=== PATIENT | male | born 1975 | race African-American/Black ===

== ENCOUNTER 2017-03-13 10:16 | Emergency (ER) | payer MEDICAID ==
[~2017-03-13] VITALS: Ht 188 cm; Wt 100.0 kg
[2017-03-13] MEDS ORDERED: ONDANSETRON HCL 4MG/2ML VIAL IV STA (10:54)
[2017-03-13] MEDS ORDERED: KETOROLAC 30MG/ML VIAL IV STA (10:54)
[2017-03-13] MEDS ORDERED: SODIUM CHLORIDE 0.9% 1,000 ML IV ONE (10:54)
[2017-03-13 11:25] LABS: BASOPHILS % 0.3 % (0.0-2.0); EOSINOPHILS % 0.2 % (0.0-5.0); HEMATOCRIT. 51.5 % (42.0-52.0); INR 1.1; LYMPHOCYTES % 14.1 % (20.0-50.0); MEAN CORPUSCULAR HEMOGLOBIN 29.2 pg (28.0-32.0); MEAN CORPUSCULAR VOLUME 88.6 fL (80.0-94.0); MEAN PLATELET VOLUME 8.5 fl (7.4-10.4); MONOCYTES % 4.9 % (2.0-8.0); NEUTROPHILS % 80.5 % (40.0-76.0); PLATELET 219 x1000/uL (130-400); RED BLOOD CELL COUNT 5.81 mill/uL (4.7-6.1); RED CELL DISTRIBUTION WIDTH 13.6 % (11.6-14.6)
[2017-03-13 11:41] LABS: CHLORIDE 100 mEq/L (98-107)
[2017-03-13 11:52] LABS: CARBON DIOXIDE 26 mEq/L (21-32)
[2017-03-13 12:31] VITALS: BP 151/95
== END 2017-03-13 14:28 | disposition home or self-care (01) ==
LOC: ER 10:28
DX: R10.12 Left upper quadrant pain (principal); F17.210 Nicotine dependence, cigarettes, uncomplicated; F12.10 Cannabis abuse, uncomplicated
CPT/HCPCS: 36415; 74176; 80053; 83690; 85025; 85610; 96361; 96374; 96375; 99285; J1885; J2405; J7030

== ENCOUNTER 2017-03-14 18:53 | Emergency (ER) | payer MEDICAID | END 2017-03-14 19:00 | disposition left against medical advice (07) | LOC: ER 18:53 | DX: R10.9 Unspecified abdominal pain (principal); Z53.21 Procedure and treatment not carried out due to patient leaving prior to being seen by health care provider ==

== ENCOUNTER 2017-03-24 09:28 | Emergency (ER) | payer MEDICAID ==
[~2017-03-24] VITALS: Ht 177.8 cm; Wt 90.0 kg
[2017-03-24] MEDS ORDERED: DICYCLOMINE 10 MG/5 ML ORAL SYR PO STA (10:32)
[2017-03-24] MEDS ORDERED: SODIUM CHLORIDE 0.9% 1,000 ML IV ONE (10:32)
[2017-03-24] MEDS ORDERED: FAMOTIDINE 20MG/2ML VIAL IV STA (10:32)
[2017-03-24] MEDS ORDERED: ONDANSETRON HCL 4MG/2ML VIAL IV STA (10:32)
[2017-03-24] MEDS ORDERED: MAGNESIUM/ALUMINUM HYDROXIDE/SIMETHICONE 30ML UDC PO STA (10:32)
[2017-03-24] MEDS ORDERED: VISCOUS LIDOCAINE 2% 15 ML UDC PO STA (10:32)
[2017-03-24] MEDS ORDERED: KETOROLAC 30MG/ML VIAL IV STA (10:32)
[2017-03-24 10:37] LABS: BASOPHILS % 0.2 % (0.0-2.0); EOSINOPHILS % 0.1 % (0.0-5.0); HEMATOCRIT. 31.6 % (42.0-52.0); HEMOGLOBIN. 10.4 g/dL (14.0-18.0); LYMPHOCYTES % 9.4 % (20.0-50.0); MEAN CORPUSCULAR HEMOGLOBIN 29.1 pg (28.0-32.0); MEAN CORPUSCULAR VOLUME 87.9 fL (80.0-94.0); MEAN PLATELET VOLUME 7.7 fl (7.4-10.4); MONOCYTES % 3.9 % (2.0-8.0); NEUTROPHILS % 86.4 % (40.0-76.0); PLATELET 426 x1000/uL (130-400); RED BLOOD CELL COUNT 3.59 mill/uL (4.7-6.1); RED CELL DISTRIBUTION WIDTH 14.5 % (11.6-14.6)
[2017-03-24 10:39] LABS: PROTHROMBIN TIME 10.3 sec (9.4-11.6)
[2017-03-24 10:48] LABS: CARBON DIOXIDE 26 mEq/L (21-32); CHLORIDE 101 mEq/L (98-107)
[2017-03-24 11:05] LABS: CLARITY URINE TURBID (CLEAR); COLOR URINE YELLOW (YELLOW); KETONES URINE 3+ (NEGATIVE); LEUKOCYTE ESTERASE URINE NEGATIVE (NEGATIVE); NITRITE URINE NEGATIVE (NEGATIVE); OCCULT BLOOD URINE NEGATIVE (NEGATIVE); PROTEIN URINE NEGATIVE (NEGATIVE)
[2017-03-24 13:06] VITALS: BP 112/70
== END 2017-03-24 13:07 | disposition home or self-care (01) ==
LOC: ER 09:28
DX: R10.12 Left upper quadrant pain (principal); R11.2 Nausea with vomiting, unspecified; F17.200 Nicotine dependence, unspecified, uncomplicated; F12.10 Cannabis abuse, uncomplicated
CPT/HCPCS: 36415; 80053; 81001; 83690; 85025; 85610; 96361; 96374; 96375; 99284; J1885; J2405; J3490; Z7610; J7030

== ENCOUNTER 2017-03-24 20:13 | Emergency (ER) | payer MEDICAID ==
[~2017-03-24] VITALS: Ht 188 cm; Wt 100.0 kg
[2017-03-24 22:26] LABS: CLARITY URINE CLEAR (CLEAR); COLOR URINE YELLOW (YELLOW); KETONES URINE TRACE (NEGATIVE); LEUKOCYTE ESTERASE URINE NEGATIVE (NEGATIVE); NITRITE URINE NEGATIVE (NEGATIVE); OCCULT BLOOD URINE NEGATIVE (NEGATIVE); PH URINE 5.5 (4.5-8.0); PROTEIN URINE NEGATIVE (NEGATIVE); SPECIFIC GRAVITY URINE 1.017 (1.005-1.030); UROBILINOGEN URINE 0.2 E.U./dL (0.2-1.0)
[2017-03-25] MEDS ORDERED: SODIUM CHLORIDE 0.9% 1,000 ML IV ONE (00:24)
[2017-03-25] MEDS ORDERED: MORPHINE SULFATE 2 MG/ML CPJ (NOT FOR IM USE) IV ONE (00:30)
[2017-03-25] MEDS ORDERED: ONDANSETRON HCL 4MG/2ML VIAL IV ONE (00:30)
[2017-03-25 00:54] LABS: BASOPHILS % 0.5 % (0.0-2.0); EOSINOPHILS % 0.5 % (0.0-5.0); HEMATOCRIT. 29.9 % (42.0-52.0); HEMOGLOBIN. 10.1 g/dL (14.0-18.0); LYMPHOCYTES % 17.8 % (20.0-50.0); MEAN CORPUSCULAR HEMOGLOBIN 29.8 pg (28.0-32.0); MEAN CORPUSCULAR VOLUME 88.4 fL (80.0-94.0); MEAN PLATELET VOLUME 7.3 fl (7.4-10.4); NEUTROPHILS % 73.2 % (40.0-76.0); PLATELET 365 x1000/uL (130-400); RED BLOOD CELL COUNT 3.38 mill/uL (4.7-6.1); RED CELL DISTRIBUTION WIDTH 14.4 % (11.6-14.6)
[2017-03-25 01:05] LABS: CARBON DIOXIDE 28 mEq/L (21-32); CHLORIDE 103 mEq/L (98-107)
[2017-03-25] MEDS ORDERED: MAGNESIUM/ALUMINUM HYDROXIDE/SIMETHICONE 30ML UDC PO STA (03:30)
[2017-03-25] MEDS ORDERED: DICYCLOMINE 10 MG/5 ML ORAL SYR PO STA (03:30)
[2017-03-25] MEDS ORDERED: KETOROLAC 30MG/ML VIAL IV NR (05:15)
[2017-03-25] MEDS ORDERED: ONDANSETRON HCL 4MG/2ML VIAL IV NR (05:15)
[2017-03-25] MEDS ORDERED: TRAMADOL 50MG TABLET PO ONE (07:30)
[2017-03-25 07:58] VITALS: BP 117/90
== END 2017-03-25 08:00 | disposition home or self-care (01) ==
LOC: ER 20:49
DX: R10.12 Left upper quadrant pain (principal); R11.2 Nausea with vomiting, unspecified; D64.9 Anemia, unspecified; Q53.10 Unspecified undescended testicle, unilateral; F12.10 Cannabis abuse, uncomplicated; F17.200 Nicotine dependence, unspecified, uncomplicated
CPT/HCPCS: 36415; 76705; 80053; 81003; 85025; 96361; 96374; 96375; 96376; 99285; J1885; J2270; J2405; J7030; Z7610

== ENCOUNTER 2017-06-07 02:14 | Emergency (ER) | payer MEDICAID ==
[~2017-06-07] VITALS: Ht 188 cm; Wt 91.0 kg
[2017-06-07] MEDS: MORPHINE SULFATE 4 MG/ML CPJ (NOT FOR IM USE) IV STA ×2 (03:27→06:29)
[2017-06-07] MEDS: ONDANSETRON HCL 4MG/2ML VIAL IV STA ×2 (03:27→06:29)
[2017-06-07] MEDS: SODIUM CHLORIDE 0.9% 1,000 ML IV ONE (03:27)
[2017-06-07 03:37] LABS: BASOPHILS % 0.2 % (0.0-2.0); EOSINOPHILS % 0.4 % (0.0-5.0); HEMATOCRIT. 25.9 % (42.0-52.0); HEMOGLOBIN. 8.3 g/dL (14.0-18.0); LYMPHOCYTES % 10.2 % (20.0-50.0); MEAN CORPUSCULAR HEMOGLOBIN 24.8 pg (28.0-32.0); MEAN PLATELET VOLUME 8.5 fl (7.4-10.4); MONOCYTES % 4.4 % (2.0-8.0); NEUTROPHILS % 84.8 % (40.0-76.0); PLATELET 274 x1000/uL (130-400); RED BLOOD CELL COUNT 3.33 mill/uL (4.7-6.1); RED CELL DISTRIBUTION WIDTH 18.3 % (11.6-14.6)
[2017-06-07 03:39] LABS: CHLORIDE 106 mEq/L (98-107)
[2017-06-07 03:41] LABS: PARTIAL THROMBOPLASTIN TIME 24.7 sec (23.4-31.0); PROTHROMBIN TIME 10.4 sec (9.4-11.6)
[2017-06-07] MEDS ORDERED: DIATR MEGLU/DIATRIZOATE SOLN 120ML ONE (06:21)
[2017-06-07 06:31] LABS: CLARITY URINE CLEAR (CLEAR); COLOR URINE YELLOW (YELLOW); KETONES URINE NEGATIVE (NEGATIVE); LEUKOCYTE ESTERASE URINE NEGATIVE (NEGATIVE); NITRITE URINE NEGATIVE (NEGATIVE); OCCULT BLOOD URINE NEGATIVE (NEGATIVE); PH URINE 6.5 (4.5-8.0); PROTEIN URINE NEGATIVE (NEGATIVE); SPECIFIC GRAVITY URINE 1.022 (1.005-1.030); UROBILINOGEN URINE 0.2 E.U./dL (0.2-1.0)
[2017-06-07] MEDS: ONDANSETRON 4MG ODT PO ONE (11:27)
[2017-06-07 11:31] VITALS: BP 129/71
[2017-06-07] MEDS ORDERED: ONDANSETRON HCL 4MG TABLET ONE (11:33)
== END 2017-06-07 11:59 | disposition home or self-care (01) ==
LOC: ER 02:14
DX: R10.32 Left lower quadrant pain (principal); R10.12 Left upper quadrant pain; R11.10 Vomiting, unspecified; K92.1 Melena
CPT/HCPCS: 36415; 71045; 74176; 76705; 80053; 81003; 83690; 85025; 85610; 85730; 86850; 86900; 86901; 93005; 96361; 96374; 96375; 96376; 99285; J2270; J2405; J7030; Q0162; Q9963

== ENCOUNTER 2017-07-25 03:43 | Emergency (ER) | payer MEDICAID ==
[~2017-07-25] VITALS: Ht 185.4 cm; Wt 90.0 kg
[2017-07-25] MEDS ORDERED: FAMOTIDINE 20MG/2ML VIAL IV STA (05:58)
[2017-07-25] MEDS ORDERED: SODIUM CHLORIDE 0.9% 1,000 ML IV ONE (05:58)
[2017-07-25] MEDS ORDERED: MORPHINE SULFATE 4 MG/ML CPJ (NOT FOR IM USE) IV STA (05:58)
[2017-07-25] MEDS ORDERED: ONDANSETRON HCL 4MG/2ML VIAL IV STA (05:58)
[2017-07-25 06:16] LABS: BASOPHILS % 0.5 % (0.0-2.0); EOSINOPHILS % 0.8 % (0.0-5.0); HEMATOCRIT. 36.1 % (42.0-52.0); HEMOGLOBIN. 11.9 g/dL (14.0-18.0); LYMPHOCYTES % 13.1 % (20.0-50.0); MEAN CORPUSCULAR HEMOGLOBIN 24.4 pg (28.0-32.0); MEAN CORPUSCULAR VOLUME 74.2 fL (80.0-94.0); MEAN PLATELET VOLUME 7.7 fl (7.4-10.4); MONOCYTES % 4.4 % (2.0-8.0); NEUTROPHILS % 81.2 % (40.0-76.0); PLATELET 422 x1000/uL (130-400); RED BLOOD CELL COUNT 4.87 mill/uL (4.7-6.1); RED CELL DISTRIBUTION WIDTH 21.8 % (11.6-14.6)
[2017-07-25 06:20] LABS: CHLORIDE 103 mEq/L (98-107)
[2017-07-25 06:21] LABS: PARTIAL THROMBOPLASTIN TIME 30.1 sec (23.4-31.0)
[2017-07-25] MEDS ORDERED: METRONIDAZOLE 500MG TABLET PO ONE (07:15)
[2017-07-25] MEDS ORDERED: LEVOFLOXACIN 500MG TABLET PO ONE (07:15)
[2017-07-25 08:19] VITALS: BP 150/92
[2017-07-25 08:24] LABS: CLARITY URINE CLEAR (CLEAR); COLOR URINE YELLOW (YELLOW); KETONES URINE NEGATIVE (NEGATIVE); LEUKOCYTE ESTERASE URINE NEGATIVE (NEGATIVE); NITRITE URINE NEGATIVE (NEGATIVE); OCCULT BLOOD URINE NEGATIVE (NEGATIVE); PH URINE 7.5 (4.5-8.0); PROTEIN URINE NEGATIVE (NEGATIVE); SPECIFIC GRAVITY URINE 1.014 (1.005-1.030); UROBILINOGEN URINE 0.2 E.U./dL (0.2-1.0)
[2017-07-25 08:49] LABS: *AMPHETAMINES SCREEN URINE PRESUMTIVE POSITIVE (NEGATIVE); *BARBITURATES SCREEN URINE NEGATIVE (NEGATIVE); *BENZODIAZEPINES SCREEN URINE NEGATIVE (NEGATIVE); CANNABINOID URINE SCREEN NEGATIVE (NEGATIVE); PHENCYCLIDINE URINE SCREEN NEGATIVE (NEGATIVE)
[2017-07-25 08:50] LABS: METHADONE URINE SCREEN NEGATIVE (NEGATIVE); OPIATES URINE SCREEN PRESUMTIVE POSITIVE (NEGATIVE)
[2017-07-25 08:59] LABS: *COCAINE SCREEN URINE NEGATIVE (NEGATIVE)
== END 2017-07-25 09:21 | disposition home or self-care (01) ==
LOC: ER 04:01
DX: R10.12 Left upper quadrant pain (principal); R11.2 Nausea with vomiting, unspecified; K29.70 Gastritis, unspecified, without bleeding; K52.9 Noninfective gastroenteritis and colitis, unspecified; K56.600 Partial intestinal obstruction, unspecified as to cause; R03.0 Elevated blood-pressure reading, without diagnosis of hypertension; F17.210 Nicotine dependence, cigarettes, uncomplicated
CPT/HCPCS: 36415; 71045; 74176; 80053; 80305; 81003; 83690; 84484; 85025; 85610; 85730; 93005; 96361; 96374; 96375; 99285; J2270; J2405; J3490; J7030; Z7610

== ENCOUNTER 2018-05-22 00:14 | Emergency (ER) | payer MEDICAID ==
[~2018-05-22] VITALS: Ht 188 cm; Wt 95.0 kg
[2018-05-22] MEDS ORDERED: ONDANSETRON HCL 4MG/2ML INJ IV STA (06:43)
[2018-05-22] MEDS ORDERED: SODIUM CHLORIDE 0.9% 1,000 ML IV ONE (06:43)
[2018-05-22] MEDS ORDERED: MORPHINE SULFATE 4 MG/ML CPJ (NOT FOR IM USE) IV STA (06:43)
[2018-05-22] MEDS ORDERED: PANTOPRAZOLE SODIUM 40 MG/VIAL IV ONE (06:45)
[2018-05-22] MEDS ORDERED: FAMOTIDINE 20MG/2ML VIAL IV ONE (06:45)
[2018-05-22] MEDS ORDERED: DIPHENHYDRAMINE 50MG/ML VIAL IV ONE (07:30)
[2018-05-22 08:07] LABS: BASOPHILS % 0.4 % (0.0-2.0); HEMOGLOBIN. 14.2 g/dL (14.0-18.0); LYMPHOCYTES % 16.1 % (20.0-50.0); MEAN PLATELET VOLUME 8.3 fl (7.4-10.4); MONOCYTES % 5.8 % (2.0-8.0); NEUTROPHILS % 76.7 % (40.0-76.0); PLATELET 220 x1000/uL (130-400); RED BLOOD CELL COUNT 4.72 mill/uL (4.7-6.1); RED CELL DISTRIBUTION WIDTH 14.3 % (11.6-14.6)
[2018-05-22 08:15] LABS: CHLORIDE 105 mEq/L (98-107)
[2018-05-22] MEDS ORDERED: IOHEXOL-300 100 ML BOTTLE ONE (09:18)
[2018-05-22] MEDS ORDERED: POLYETHYLENE GLYCOL 3350 (17GM) 1 DOSE PACK PO ONE (09:30)
[2018-05-22 12:16] LABS: CLARITY URINE CLEAR (CLEAR); COLOR URINE YELLOW (YELLOW); KETONES URINE NEGATIVE (NEGATIVE); LEUKOCYTE ESTERASE URINE NEGATIVE (NEGATIVE); NITRITE URINE NEGATIVE (NEGATIVE); OCCULT BLOOD URINE NEGATIVE (NEGATIVE); PH URINE 6.5 (4.5-8.0); PROTEIN URINE NEGATIVE (NEGATIVE); SPECIFIC GRAVITY URINE 1.013 (1.005-1.030); UROBILINOGEN URINE 0.2 E.U./dL (0.2-1.0)
[2018-05-22 13:52] VITALS: BP 157/86
== END 2018-05-22 13:56 | disposition home or self-care (01) ==
LOC: ER 00:14
DX: R10.12 Left upper quadrant pain (principal); R11.2 Nausea with vomiting, unspecified; K59.00 Constipation, unspecified; F17.200 Nicotine dependence, unspecified, uncomplicated; Z87.11 Personal history of peptic ulcer disease
CPT/HCPCS: 36415; 74177; 80053; 81003; 83690; 85025; 85610; 96361; 96374; 96375; 96376; 99284; C9113; J2270; J2405; J3490; J7030; Q9967; Z7610

== ENCOUNTER 2018-05-29 08:32 | Emergency (ER) | payer MEDICAID ==
[~2018-05-29] VITALS: Ht 188 cm; Wt 95.0 kg
[2018-05-29] MEDS ORDERED: ONDANSETRON HCL 4MG/2ML INJ IV STA (10:28)
[2018-05-29] MEDS ORDERED: KETOROLAC 30MG/ML VIAL IV STA (10:28)
[2018-05-29] MEDS ORDERED: FAMOTIDINE 20MG/2ML VIAL IV STA (10:28)
[2018-05-29 11:50] LABS: BASOPHILS % 0.2 % (0.0-2.0); EOSINOPHILS % 0.3 % (0.0-5.0); HEMATOCRIT. 44.2 % (42.0-52.0); HEMOGLOBIN. 14.9 g/dL (14.0-18.0); LYMPHOCYTES % 13.2 % (20.0-50.0); MEAN CORPUSCULAR HEMOGLOBIN 30.1 pg (28.0-32.0); MEAN CORPUSCULAR VOLUME 89.6 fL (80.0-94.0); MEAN PLATELET VOLUME 8.2 fl (7.4-10.4); MONOCYTES % 4.8 % (2.0-8.0); NEUTROPHILS % 81.5 % (40.0-76.0); PLATELET 278 x1000/uL (130-400); RED BLOOD CELL COUNT 4.93 mill/uL (4.7-6.1); RED CELL DISTRIBUTION WIDTH 13.8 % (11.6-14.6)
[2018-05-29 11:51] LABS: CHLORIDE 99 mEq/L (98-107)
[2018-05-29] MEDS ORDERED: DICYCLOMINE HCL 10MG/ML 2ML AMP IM ONE (12:30)
[2018-05-29 14:33] LABS: CLARITY URINE CLEAR (CLEAR); COLOR URINE YELLOW (YELLOW); KETONES URINE NEGATIVE (NEGATIVE); LEUKOCYTE ESTERASE URINE NEGATIVE (NEGATIVE); NITRITE URINE NEGATIVE (NEGATIVE); OCCULT BLOOD URINE NEGATIVE (NEGATIVE); PROTEIN URINE NEGATIVE (NEGATIVE); SPECIFIC GRAVITY URINE 1.012 (1.005-1.030); UROBILINOGEN URINE 0.2 E.U./dL (0.2-1.0)
[2018-05-29 14:48] LABS: *AMPHETAMINES SCREEN URINE PRESUMTIVE POSITIVE (NEGATIVE); *BARBITURATES SCREEN URINE NEGATIVE (NEGATIVE); *COCAINE SCREEN URINE NEGATIVE (NEGATIVE); CANNABINOID URINE SCREEN NEGATIVE (NEGATIVE); METHADONE URINE SCREEN NEGATIVE (NEGATIVE); OPIATES URINE SCREEN NEGATIVE (NEGATIVE); PHENCYCLIDINE URINE SCREEN NEGATIVE (NEGATIVE)
[2018-05-29 14:49] LABS: *BENZODIAZEPINES SCREEN URINE NEGATIVE (NEGATIVE)
[2018-05-29 15:20] VITALS: BP 114/81
== END 2018-05-29 15:30 | disposition home or self-care (01) ==
LOC: ER 08:40
DX: E86.0 Dehydration (principal); K59.00 Constipation, unspecified; F15.90 Other stimulant use, unspecified, uncomplicated; R10.13 Epigastric pain; R10.33 Periumbilical pain; F17.200 Nicotine dependence, unspecified, uncomplicated; K21.9 Gastro-esophageal reflux disease without esophagitis; Z79.899 Other long term (current) drug therapy
CPT/HCPCS: 36415; 74022; 80053; 80305; 81003; 83690; 85025; 85610; 96372; 96374; 96375; 99284; J0500; J1885; J2405; J3490

== ENCOUNTER 2018-08-21 21:24 | Emergency (ER) | payer MEDICAID ==
[~2018-08-21] VITALS: Ht 188 cm; Wt 92.0 kg
[2018-08-22] MEDS ORDERED: MORPHINE SULFATE 4 MG/ML CPJ (NOT FOR IM USE) IV STA (01:55)
[2018-08-22] MEDS ORDERED: SODIUM CHLORIDE 0.9% 1,000 ML IV ONE (01:55)
[2018-08-22] MEDS ORDERED: FAMOTIDINE 20MG/2ML VIAL IV STA (01:55)
[2018-08-22 02:30] LABS: BASOPHILS % 0.5 % (0.0-2.0); EOSINOPHILS % 0.7 % (0.0-5.0); HEMATOCRIT. 46.3 % (42.0-52.0); HEMOGLOBIN. 15.7 g/dL (14.0-18.0); LYMPHOCYTES % 18.4 % (20.0-50.0); MEAN CORPUSCULAR HEMOGLOBIN 29.3 pg (28.0-32.0); MEAN CORPUSCULAR VOLUME 86.5 fL (80.0-94.0); MEAN PLATELET VOLUME 8.5 fl (7.4-10.4); NEUTROPHILS % 75.4 % (40.0-76.0); PLATELET 210 x1000/uL (130-400); RED BLOOD CELL COUNT 5.35 mill/uL (4.7-6.1); RED CELL DISTRIBUTION WIDTH 15.2 % (11.6-14.6)
[2018-08-22 02:34] LABS: CHLORIDE 100 mEq/L (98-107)
[2018-08-22 04:03] LABS: CLARITY URINE CLEAR (CLEAR); COLOR URINE YELLOW (YELLOW); KETONES URINE TRACE (NEGATIVE); LEUKOCYTE ESTERASE URINE NEGATIVE (NEGATIVE); NITRITE URINE NEGATIVE (NEGATIVE); OCCULT BLOOD URINE NEGATIVE (NEGATIVE); PROTEIN URINE NEGATIVE (NEGATIVE); SPECIFIC GRAVITY URINE 1.022 (1.005-1.030); UROBILINOGEN URINE 0.2 E.U./dL (0.2-1.0)
[2018-08-22 04:13] LABS: *AMPHETAMINES SCREEN URINE PRESUMTIVE POSITIVE (NEGATIVE); *BARBITURATES SCREEN URINE NEGATIVE (NEGATIVE); *BENZODIAZEPINES SCREEN URINE NEGATIVE (NEGATIVE); *COCAINE SCREEN URINE NEGATIVE (NEGATIVE)
[2018-08-22 04:14] LABS: CANNABINOID URINE SCREEN NEGATIVE (NEGATIVE); METHADONE URINE SCREEN NEGATIVE (NEGATIVE); OPIATES URINE SCREEN NEGATIVE (NEGATIVE); PHENCYCLIDINE URINE SCREEN NEGATIVE (NEGATIVE)
[2018-08-22 06:05] VITALS: BP 102/66
== END 2018-08-22 06:10 | disposition home or self-care (01) ==
LOC: ER 23:53
DX: K59.00 Constipation, unspecified (principal); R11.2 Nausea with vomiting, unspecified; R10.12 Left upper quadrant pain
CPT/HCPCS: 36415; 74018; 80053; 80305; 81003; 83690; 85025; 85610; 93005; 96361; 96374; 96375; 99284; J2270; J3490; J7030; Z7610